=== PATIENT | male | born 1950 | race Two or more races ===

== ENCOUNTER 2017-01-30 22:49 | Emergency (ER) | payer MEDICARE, MEDICAID ==
[~2017-01-30] VITALS: Ht 165.1 cm; Wt 71.2 kg
[~2017-01-30 22:49] MED LIST: ALL100T PO; AMLO10TA2 PO; ASPI-498 OR; BENA20TA4 PO; FURO40TA PO; GABA300C8 PO; METO25TA62 PO; SIMV-8 PO; SODB650T PO
[2017-01-30 23:58] LABS: Basophils # (auto) 0.1 uL; Basophils % (auto) 2.2 % (0.0-2.0); Eosinophils # (auto) 0.3 uL; Eosinophils % (auto) 5.5 % (0.0-7.0); Hematocrit 37.9 % (41.0-53.0); Hemoglobin 12.3 g/dL (13.5-17.5); Lymphocytes # (auto) 2.3 uL; Lymphocytes % (auto) 38.7 % (10.0-50.0); Mean Corpuscular Hemoglobin 27.9 pg (28.0-32.0); Mean Corpuscular Hgb Conc. 32.4 g/dL (32.0-36.0); Mean Corpuscular Volume 85.9 fL (80.0-100.0); Mean Platelet Volume 9.5 fL (7.4-10.4); Monocytes # (auto) 0.7 uL; Monocytes % (auto) 12.3 % (0.0-12.0); Neutrophils # (auto) 2.6 uL; Neutrophils % (auto) 41.3 % (37.0-80.0); Platelet Count (auto) 156 10^3/uL (140-450); Red Cell Distribution Width 11.8 % (11.6-16.0)
[2017-01-31 00:14] LABS: Albumin 3.5 g/dL (3.4-5.0); Anion Gap 13 (5-15); Aspartate Aminotransferase 20 U/L (15-37); BUN/Creatinine Ratio 13.4; Blood Urea Nitrogen 77 mg/dL (7-18); Calcium 8.6 mg/dL (8.5-10.1); Carbon Dioxide 30 mmol/L (21-32); Chloride 97 mmol/L (98-107); GFR African American 13 mL/min; GFR Non-African American 11 mL/min; Glucose 92 mg/dL (74-106); Potassium 3.7 mmol/L (3.5-5.1); Sodium 140 mmol/L (136-145)
[2017-01-31 00:19] LABS: Alkaline Phosphatase 55 U/L (45-117); Bilirubin, Total 0.3 mg/dL (0.2-1.0); INR 1.01 (0.9-1.15); Partial Thromboplastin Time 25.3 sec (22.64-33.71); Prothrombin Time 10.4 sec (9.37-12.3); Total Protein 7.2 g/dL (6.4-8.2)
[2017-01-31 00:23] LABS: B-Type Natriuretic Peptide 88.49 pg/mL (0-100)
[2017-01-31 00:40] LABS: Temperature: 22.9 C (20.0-25.0)
[2017-01-31 02:59] VITALS: BP 144/84
== END 2017-01-31 03:06 | disposition left against medical advice (07) ==
LOC: ER 23:00
DX: M79.622 Pain in left upper arm (principal); Z53.21 Procedure and treatment not carried out due to patient leaving prior to being seen by health care provider
CPT/HCPCS: 36415; 72125; 80053; 83880; 84484; 85025; 85610; 85730; 93005